=== PATIENT | female | born 1985 | race Caucasian/White ===

== ENCOUNTER 2022-10-14 14:26 | Emergency (ER) | payer BC ==
[2022-10-14] MEDS ORDERED: Acetaminophen/HYDROcodone 325-5 MG Tab PO ONE (14:50)
== END 2022-10-14 15:57 | disposition home or self-care (01) ==
LOC: MW.ED 14:26
DX: S43.51XA Sprain of right acromioclavicular joint, initial encounter (principal); M06.9 Rheumatoid arthritis, unspecified; Z88.2 Allergy status to sulfonamides; W01.0XXA Fall on same level from slipping, tripping and stumbling without subsequent striking against object, initial encounter; Y92.009 Unspecified place in unspecified non-institutional (private) residence as the place of occurrence of the external cause
CPT/HCPCS: 73000; 99283; A9270